=== PATIENT | female | born 1995 | race Caucasian/White ===

== ENCOUNTER 2018-11-20 22:19 | Emergency (ER) | payer SELFPAY ==
[~2018-11-20] VITALS: Ht 160 cm; Wt 71.2 kg
[2018-11-20 22:24] VITALS: BP 123/73
--- NOTE | 2018-11-20 22:34 | NUR ---
PT AMBULATED TO LOBBY WITH VSS.
--- NOTE | 2018-11-21 00:35 | NUR ---
PT AMBULATED TO BED 12.
--- NOTE | 2018-11-21 00:54 | NUR ---
PT CAME TO ER C/O OF LOWER BACK PAIN AND HEADACHE X 1 DAY. PT DENIES INJURY OR TRAUMA. PT IS 24 WEEKS . LMP 06/04/18. PAIN LEVEL 8/10, ACHING. DENIES BURNING UPON URINATION. NKA. NO MED HX. SAFETY MEASURES IN PLACE. WAITING FOR ERMD TO EVALUATE PT.
[2018-11-21] MEDS ORDERED: ACETAMINOPHEN 325 MG TAB PO ONE (01:40)
--- NOTE | 2018-11-21 01:40 | NUR ---
ERMD AT BEDSIDE
[2018-11-21 02:02] VITALS: BP 123/73
--- NOTE | 2018-11-21 02:02 | NUR ---
Patient discharged with v/s stable. Written and verbal after care instructions given and explained. Patient verbalized understanding. Ambulatory with steady gait. All questions addressed prior to discharge. Advised to follow up with OBGYN.
== END 2018-11-21 02:02 | disposition home or self-care (01) ==
LOC: MED 22:19
DX: O26.892 Other specified pregnancy related conditions, second trimester (principal); M54.5 Low back pain; Z3A.24 24 weeks gestation of pregnancy
CPT/HCPCS: 81002; 81025; 99283